=== PATIENT | male | born 1955 | race Caucasian/White ===

== ENCOUNTER 2022-12-21 17:41 | Emergency (ER) | payer OTHER ==
[~2022-12-21] VITALS: Ht 167.6 cm; Wt 98.4 kg
--- NOTE | 2022-12-21 17:49 | NUR ---
BIBRA 89 FROM HOME SHORTNESS OF BREATH. WAS GIVEN ALBUTEROL TX BY EMT. FROM 85% TO 100% O2SAT. STILL WHEEZING ON ALL SMITH BOTH EXPIRATORY AND EXPIRATORY. MADE AWARE .
[2022-12-21] MEDS ORDERED: predniSONE 20 MG TABLET ONE (17:58)
[2022-12-21] MEDS ORDERED: ALBUTEROL FS 2.5 MG/3 ML VIAL.NEB CONTNEB ONE (18:00)
[2022-12-21] MEDS ORDERED: predniSONE 20 MG TABLET PO ONE (18:00)
[2022-12-21] MEDS ORDERED: IPRATROPIUM NEB FS 0.5 MG/2.5 ML AMPUL.NEB NEB ONE (18:00)
--- NOTE | 2022-12-21 18:00 | NUR ---
Martínez german in [facility] - 12/21/22 at 1846 by CLAUDIA ESTABLISHED IV LINE 20 G RIGHT AC
--- NOTE | 2022-12-21 18:00 | NUR ---
RT AT BED SIDE FOR BREATHING TX
--- NOTE | 2022-12-21 18:16 | NUR ---
Martínez german in [facility] - 12/21/22 at 1846 by CLAUDIA REPEAT RADHAG DONE BY EMT
[2022-12-21] MEDS ORDERED: ALBUTEROL FS 2.5 MG/3 ML VIAL.NEB ONE (18:17)
[2022-12-21] MEDS ORDERED: IPRATROPIUM NEB FS 0.5 MG/2.5 ML AMPUL.NEB ONE (18:17)
--- NOTE | 2022-12-21 18:20 | NUR ---
Martínez german in [facility] - 12/21/22 at 1846 by CLAUDIA ESTABLISHED IV LINE 18 G LEFT AC .
[2022-12-21 18:28] LABS: BASOPHILS # (AUTO) 0.1 K/uL (0.0-0.2); BASOPHILS % (AUTO) 1.4 % (0.0-2.0); EOSINOPHILS % (AUTO) 5.1 % (0.0-6.0); HEMATOCRIT 45 % (39-51); HEMOGLOBIN 15.1 g/dL (13.5-17.5); LYMPHOCYTES # (AUTO) 0.4 K/uL (0.8-4.8); LYMPHOCYTES % (AUTO) 3.4 % (20.0-44.0); MEAN CORPUSCULAR HGB CONC 34 g/dl (31.0-36.0); MEAN CORPUSCULAR VOLUME 86 fL (80-96); MONOCYTES # (AUTO) 0.6 K/uL (0.1-1.30); MONOCYTES % (AUTO) 6.1 % (2.0-12.0); NEUTROPHILS # (AUTO) 8.8 K/uL (1.8-8.9); PLATELET COUNT (AUTO) 141 K/uL (150-450); RED BLOOD CELL COUNT(AUTO) 5.21 MIL/uL (4.5-6.0); WHITE BLOOD COUNT (AUTO) 10.4 K/uL (4.3-11.0)
[2022-12-21 18:48] LABS: CALCIUM, SERUM 9.3 mg/dL (8.5-10.1); CARBON DIOXIDE 28 mmol/L (21-32); CHLORIDE 101 mmol/L (98-107); GLUCOSE 108 mg/dL (74-106); POTASSIUM 3.9 mmol/L (3.5-5.1); SODIUM SERUM 140 mmol/L (136-145); UREA NITROGEN, BLOOD 22 mg/dL (7-18)
[2022-12-21 18:56] LABS: ALANINE AMINOTRANSFERASE 28 U/L (12-78); ALBUMIN 4.2 g/dL (3.4-5.0); ALKALINE PHOSPHATASE 99 U/L (46-116); ASPARTATE AMINOTRANSFERASE 24 U/L (15-37); BILIRUBIN,DIRECT 0.2 mg/dL (0.0-0.2); BILIRUBIN,TOTAL 0.9 mg/dL (0.2-1.0)
--- NOTE | 2022-12-21 19:56 | NUR ---
covid test done
[2022-12-21] MEDS ORDERED: FUROSEMIDE 40 MG/4 ML VIAL IV ONE (20:00)
[2022-12-21 20:05] LABS: BAND % (MANUAL) 4 % (0.0-5.0); EOSINOPHILS % (MANUAL) 4 % (0-4); LYMPHOCYTES % (MANUAL) 8 % (16-48); MONOCYTES % (MANUAL) 5 % (0-11.0); NEUTROPHILS % (MANUAL) 79 (42-76)
[2022-12-21] MEDS ORDERED: FUROSEMIDE 40 MG/4 ML VIAL ONE (20:11)
[2022-12-21] MEDS ORDERED: FURO-144 PO (20:12)
[2022-12-21] MEDS ORDERED: PRED50TA PO (20:12)
[2022-12-21] MEDS ORDERED: ALBU8.5H8 INH (20:12)
--- NOTE | 2022-12-21 21:54 | NUR ---
Medically stable for discharge per MD. IV removed. Catheter intact and site benign. Pressure and 4x4 applied to site. No bleeding noted.Patient discharged to home in stable condition. Written and verbal after care instructions given. Patient verbalizes understanding of instruction. awaiting for to pick him up.
--- NOTE | 2022-12-21 22:00 | NUR ---
Patient discharged to home in stable condition. Ambulatory. Written and verbal after care instructions given. Patient verbalizes understanding of instruction.
[2022-12-21 22:10] VITALS: BP 129/60
== END 2022-12-21 22:11 | disposition home or self-care (01) ==
LOC: ER 17:43
DX: J45.901 Unspecified asthma with (acute) exacerbation (principal); I50.9 Heart failure, unspecified; Z60.2 Problems related to living alone; Z79.899 Other long term (current) drug therapy; Z20.822 Contact with and (suspected) exposure to COVID-19
CPT/HCPCS: 99291; 96374; 87426; 93005; 71045; 85025; 80048; 80076; 84484 ×2; 83880; 94799; 85007; 94640 ×2; J1940; J7512; C9803